=== PATIENT | male | born 1945 | race Caucasian/White ===

== ENCOUNTER 2016-11-04 12:15 | Inpatient (IN) | payer MEDICARE ==
[~2016-11-04] VITALS: Ht 172.7 cm; Wt 87.2 kg
[~2016-11-04 12:15] MED LIST: ALBU2.5V11; ALBU8.5H3 PO; ALPR0.25 PO; ALPR0.257 PO; ALPR1TAB10 PO; AMLO10TA2 PO; AMLO5TAB4 PO; AZIT500T77 PO; BUSP10TA PO; CARB1TAB2 PO; CARB1TAB47 PO; CEFD300C37 PO; DEXTROMETHORPHAN-GUA PO; DIPH25CA61; DOXY100T PO; ESOM20CA PO; ESOMEPRAZOLE PO; FAMO20TA7 PO; FLUC200T; FLUT1BLS INH; FLUT1DIS3 INH; FURO-92 PO; FURO-93; FURO40TA6 PO; HYDR-3144 PO; HYDR118L15; HYDR12.58; IPRA3AMP NPPB; LEVO500T8 PO; LEVO750T26 PO; LORA-446 PO; METH32TA PO; METH750T2 PO; METO10TA2 PO; METO50TA4 PO; METO50TA82 PO; METO5TAB57 PO; NITR0.4T SL; OXYC5TAB2 PO; OXYC5TAB3 PO; PANT40TA3 PO; POTA10CA PO; POTA10TA11 PO; POTA20PA8 PO; PRED-402 PO; PRED10TA PO; PRED20TA PO; PRED50TA; PRED5TAB PO; ROPI1TAB PO; ROPI2TAB6 PO; SIME80TA16 PO; TAMS-11 PO; TEMA30CA PO; TIOT18CA INH; TRAZ100T15 PO; WARF5TAB7 PO; [UNRECOGNIZED DRUG - CODE]; kcl
[2016-11-04 13:06] LABS: HEMOGLOBIN 14.9 g/dL (13.7-18.0); WHITE BLOOD COUNT 6.7 x10^3/uL (3.4-10)
[2016-11-04 13:19] LABS: ASPARTATE AMINO TRANSFERASE 17 U/L (15-37); BLOOD UREA NITROGEN 19 mg/dL (7-18)
[2016-11-04] MEDS ORDERED: PHYTONADIONE 10 MG/ML, 1ML IM ONE (14:30)
[2016-11-04] MEDS ORDERED: PRED10TA14 PO (14:51)
[2016-11-04] MEDS ORDERED: PRAV10TA2 PO (14:55)
[2016-11-04] MEDS ORDERED: hydrALAzine 20 MG/ML, 1ML IVPush PRN (15:30)
[2016-11-04] MEDS ORDERED: ONDANSETRON 2MG/ML, 2ML IVPush PRN (15:30)
[2016-11-04] MEDS ORDERED: TEMAZEPAM 15 MG CAPSULE PO PRN (15:30)
[2016-11-04] MEDS ORDERED: ACETAMINOPHEN 325 MG TABLET PO PRN (15:30)
[2016-11-04] MEDS ORDERED: ALBUTEROL/IPRATROPIUM 2.5MG/0.5MG, 3 ML ONE (16:00)
[2016-11-04] MEDS: ALBUTEROL SULFATE 2.5 MG/3 ML NPPB SCH (16:05)
[2016-11-04] MEDS ORDERED: PHYTONADIONE 10 MG/ML, 1ML ONE (16:07)
[2016-11-04] MEDS ORDERED: methylPREDNISolone SOD SUCC 125 MG/2 ML ONE (16:07)
[2016-11-04] MEDS: methylPREDNISolone SOD SUCC 125 MG/2 ML IVPush SCH ×2 (16:17→21:20)
[2016-11-04] MEDS ORDERED: ALBUTEROL SULFATE 2.5 MG/3 ML NPPB PRN (16:30)
[2016-11-04] MEDS: morphine SULFATE 10 MG/ML, 1ML IVPush PRN (17:54)
[2016-11-04 18:22] VITALS: BP 135/60
[2016-11-04 19:28] VITALS: BP 146/79
[2016-11-04] MEDS ORDERED: PRAVASTATIN SODIUM 10 MG PO SCH (21:00)
[2016-11-04] MEDS ORDERED: DOXYCYCLINE 100MG TABLET PO ONE (21:00)
[2016-11-04] MEDS: HYDROcodone/APAP 5/325 TABLET PO PRN (21:20)
[2016-11-04] MEDS: PRAVASTATIN 20 MG TABLET PO SCH (21:53)
[2016-11-04] MEDS: DIPHENHYDRAMINE 25 MG CAPSULE PO PRN (23:43)
[2016-11-05] MEDS: morphine SULFATE 10 MG/ML, 1ML IVPush PRN ×4 (01:06→22:49)
[2016-11-05 01:18] VITALS: BP 162/88
[2016-11-05] MEDS: HYDROcodone/APAP 5/325 TABLET PO PRN ×2 (04:01→08:04)
[2016-11-05] MEDS: methylPREDNISolone SOD SUCC 125 MG/2 ML IVPush SCH ×4 (04:02→19:54)
[2016-11-05] MEDS: ALBUTEROL SULFATE 2.5 MG/3 ML NPPB SCH ×4 (07:25→19:50)
[2016-11-05 08:00] VITALS: BP 159/81
[2016-11-05] MEDS: POTASSIUM CHLORIDE 20 MEQ PACKET PO SCH (08:04)
[2016-11-05] MEDS: FLUTICASONE/VILANTEROL 200-25MCG/INH INH SCH (08:04)
[2016-11-05] MEDS: FUROSEMIDE 40 MG TABLET PO SCH (08:05)
[2016-11-05] MEDS: AZITHROMYCIN 500 MG TABLET PO SCH (08:05)
[2016-11-05] MEDS ORDERED: OXYcodone IR 5MG TABLET PO PRN (11:00)
[2016-11-05 13:55] VITALS: BP 157/82
[2016-11-05 19:12] VITALS: BP 156/89
[2016-11-05] MEDS: PRAVASTATIN 20 MG TABLET PO SCH (19:55)
[2016-11-05] MEDS ORDERED: MORPHINE SULFATE 4 MG/ML, 1ML ONE (22:44)
[2016-11-05] MEDS: DIPHENHYDRAMINE 25 MG CAPSULE PO PRN (23:43)
[2016-11-06 01:58] VITALS: BP 148/82
[2016-11-06] MEDS: methylPREDNISolone SOD SUCC 125 MG/2 ML IVPush SCH ×2 (03:55→09:14)
[2016-11-06] MEDS ORDERED: MORPHINE SULFATE 4 MG/ML, 1ML ONE ×2 (03:58→07:03)
[2016-11-06] MEDS: morphine SULFATE 10 MG/ML, 1ML IVPush PRN ×2 (04:00→07:06)
[2016-11-06 07:13] VITALS: BP 155/72
[2016-11-06] MEDS: ALBUTEROL SULFATE 2.5 MG/3 ML NPPB SCH ×2 (07:19→10:42)
[2016-11-06] MEDS: AZITHROMYCIN 500 MG TABLET PO SCH (07:33)
[2016-11-06] MEDS: POTASSIUM CHLORIDE 20 MEQ PACKET PO SCH (07:33)
[2016-11-06] MEDS: FUROSEMIDE 40 MG TABLET PO SCH (07:33)
[2016-11-06] MEDS: FLUTICASONE/VILANTEROL 200-25MCG/INH INH SCH (07:33)
[2016-11-06] MEDS ORDERED: TRAM50TA2 PO (11:01)
[2016-11-06] MEDS ORDERED: RIVA20TA PO (11:01)
[2016-11-06] MEDS ORDERED: PRED10TA PO (11:01)
[2016-11-06] MEDS ORDERED: AZIT500T77 PO (11:01)
[2016-11-06] MEDS ORDERED: METO25TA91 PO (11:13)
[2016-11-06 13:23] VITALS: BP 148/82
== END 2016-11-06 14:45 | disposition home or self-care (01) | DRG 191 ==
LOC: ED 14:36 → SUATTDRO 14:51 → EDIP 15:13 → 3NW 16:25
PROVIDERS: ADMIT Internal Medicine; ATTEND Internal Medicine
DX: J44.1 Chronic obstructive pulmonary disease with (acute) exacerbation (principal); I13.0 Hypertensive heart and chronic kidney disease with heart failure and stage 1 through stage 4 chronic kidney disease, or unspecified chronic kidney disease; D68.9 Coagulation defect, unspecified; E11.22 Type 2 diabetes mellitus with diabetic chronic kidney disease; I50.32 Chronic diastolic (congestive) heart failure; Z99.81 Dependence on supplemental oxygen; I48.0 Paroxysmal atrial fibrillation; Z88.0 Allergy status to penicillin; Z79.01 Long term (current) use of anticoagulants; Z88.8 Allergy status to other drugs, medicaments and biological substances; E78.5 Hyperlipidemia, unspecified; N18.9 Chronic kidney disease, unspecified; Z82.49 Family history of ischemic heart disease and other diseases of the circulatory system; Z86.73 Personal history of transient ischemic attack (TIA), and cerebral infarction without residual deficits; Z87.891 Personal history of nicotine dependence; Z90.49 Acquired absence of other specified parts of digestive tract
CPT/HCPCS: 36415; 80053; 80061; 83036; 85025; 85610; 85730; 93005; 94640; 96372; J3430; J7613; J2270; J2930; Q0163

== ENCOUNTER 2016-12-02 04:09 | Inpatient (IN) | payer MEDICARE ==
[~2016-12-02] VITALS: Ht 172.7 cm; Wt 81.6 kg
[~2016-12-02 04:09] MED LIST changes: -ALBU8.5H3 PO; +ALBU8.5H8 PO; +AZIT500T5 PO; -AZIT500T77 PO; -HYDR-3144 PO; +HYDR-3245 PO; +METO25TA91 PO; +POTA20PA25 PO; -POTA20PA8 PO; +PRAV10TA2 PO; +PRED10TA14 PO; +RIVA20TA PO; +TRAM50TA2 PO
[2016-12-02] MEDS ORDERED: ONDANSETRON 2MG/ML, 2ML IVPush ONE (05:00)
[2016-12-02] MEDS ORDERED: SODIUM CHLORIDE FLUSH 10ML SYR IVF ONE (05:00)
[2016-12-02] MEDS ORDERED: SODIUM CHLORIDE 0.9% 1,000ML IVBOLUS ONE (05:00)
[2016-12-02] MEDS ORDERED: MORPHINE SULFATE 4 MG/ML, 1ML IVPush PRN (05:00)
[2016-12-02] MEDS ORDERED: ALBUTEROL/IPRATROPIUM 2.5MG/0.5MG, 3 ML ONE ×3 (05:28→11:06)
[2016-12-02] MEDS: ALBUTEROL/IPRATROPIUM 2.5MG/0.5MG, 3 ML NPPB SCH ×5 (05:33→23:40)
[2016-12-02 05:51] LABS: HEMATOCRIT 42.7 % (39.2-51.8); HEMOGLOBIN 14.4 g/dL (13.7-18.0)
[2016-12-02 05:53] LABS: BLOOD UREA NITROGEN 23 mg/dL (7-18)
[2016-12-02] MEDS ORDERED: HYDROcodone/APAP 5/325 TABLET ONE (05:58)
[2016-12-02] MEDS ORDERED: HYDROcodone/APAP 5/325 TABLET PO ONE (06:00)
[2016-12-02 06:28] LABS: IS PT STATUS REG ER OR PRE ER? YES
[2016-12-02] MEDS ORDERED: MAGNESIUM SULFATE PMX 2GM/50ML 50 ML IV ONE (07:30)
[2016-12-02] MEDS ORDERED: NITROGLYCERIN 0.4 MG BOTTLE (25 TABS) SL PRN (09:00)
[2016-12-02] MEDS ORDERED: ALBUTEROL SULFATE 2.5 MG/3 ML NPPB PRN (09:00)
[2016-12-02] MEDS: FLUTICASONE/VILANTEROL 200-25MCG/INH INH SCH (09:00)
[2016-12-02] MEDS ORDERED: ACETAMINOPHEN 325 MG TABLET PO PRN (09:00)
[2016-12-02] MEDS ORDERED: DOCUSATE 100 MG CAPSULE PO PRN (09:00)
[2016-12-02] MEDS ORDERED: hydrALAzine 20 MG/ML, 1ML IVPush PRN (09:00)
[2016-12-02] MEDS ORDERED: HYDROcodone/APAP 5/325 TABLET PO PRN (09:00)
[2016-12-02] MEDS ORDERED: GUAIFENESIN/DM 200-20MG, 10ML UDC PO PRN (09:00)
[2016-12-02] MEDS ORDERED: ONDANSETRON 2MG/ML, 2ML IVPush PRN (09:00)
[2016-12-02] MEDS: POTASSIUM CHLORIDE 20 MEQ PACKET PO SCH (09:00)
[2016-12-02] MEDS ORDERED: OXYcodone IR 5MG TABLET ONE (09:30)
[2016-12-02] MEDS: OXYcodone IR 5MG TABLET PO PRN ×2 (09:46→20:01)
[2016-12-02] MEDS ORDERED: ALBUTEROL/IPRATROPIUM 2.5MG/0.5MG, 3 ML NPPB SCH (11:00)
[2016-12-02 12:10] VITALS: BP 165/91
[2016-12-02] MEDS: PANTOPROZOLE 40MG TABLET PO SCH (12:59)
[2016-12-02] MEDS: FUROSEMIDE 40 MG TABLET PO SCH (12:59)
[2016-12-02] MEDS: RIVAROXABAN 20 MG TABLET PO SCH (12:59)
[2016-12-02] MEDS: methylPREDNISolone SOD SUCC 40 MG/ML IV SCH ×2 (13:00→23:18)
[2016-12-02 18:27] VITALS: BP 165/91
[2016-12-02 18:36] VITALS: BP 157/89
[2016-12-02] MEDS: DIAZEPAM 5 MG TABLET PO PRN (21:50)
[2016-12-03 00:23] VITALS: BP 138/75
[2016-12-03] MEDS: methylPREDNISolone SOD SUCC 40 MG/ML IV SCH (05:03)
[2016-12-03] MEDS: OXYcodone IR 5MG TABLET PO PRN ×4 (05:03→20:06)
[2016-12-03 05:43] LABS: HEMATOCRIT 43.3 % (39.2-51.8); HEMOGLOBIN 14.4 g/dL (13.7-18.0); WHITE BLOOD COUNT 8.2 x10^3/uL (3.4-10)
[2016-12-03 06:00] LABS: BLOOD UREA NITROGEN 18 mg/dL (7-18)
[2016-12-03 06:50] VITALS: BP 143/71
[2016-12-03] MEDS: ALBUTEROL/IPRATROPIUM 2.5MG/0.5MG, 3 ML NPPB SCH ×5 (06:54→23:11)
[2016-12-03] MEDS: FUROSEMIDE 40 MG TABLET PO SCH (09:07)
[2016-12-03] MEDS: POTASSIUM CHLORIDE 20 MEQ PACKET PO SCH (09:07)
[2016-12-03] MEDS: PANTOPROZOLE 40MG TABLET PO SCH (09:07)
[2016-12-03] MEDS: RIVAROXABAN 20 MG TABLET PO SCH (09:07)
[2016-12-03] MEDS: FLUTICASONE/VILANTEROL 200-25MCG/INH INH SCH (09:08)
[2016-12-03 13:53] VITALS: BP 157/79
[2016-12-03 19:01] VITALS: BP 135/79
[2016-12-03] MEDS: DIAZEPAM 5 MG TABLET PO PRN (21:12)
[2016-12-04] MEDS: ALBUTEROL/IPRATROPIUM 2.5MG/0.5MG, 3 ML NPPB SCH ×2 (03:00→07:00)
[2016-12-04 05:07] VITALS: BP 151/65
[2016-12-04] MEDS: OXYcodone IR 5MG TABLET PO PRN (05:12)
[2016-12-04] MEDS: FLUTICASONE/VILANTEROL 200-25MCG/INH INH SCH (07:41)
[2016-12-04 07:42] VITALS: BP 146/71
[2016-12-04] MEDS: RIVAROXABAN 20 MG TABLET PO SCH (07:42)
[2016-12-04] MEDS: PANTOPROZOLE 40MG TABLET PO SCH (07:42)
[2016-12-04] MEDS: FUROSEMIDE 40 MG TABLET PO SCH (07:42)
[2016-12-04] MEDS: POTASSIUM CHLORIDE 20 MEQ PACKET PO SCH (07:42)
[2016-12-04] MEDS ORDERED: CALC1TAB68 PO (09:00)
[2016-12-04] MEDS ORDERED: ALBU2.5V NPPB (09:00)
[2016-12-04] MEDS ORDERED: OXYC5TAB3 PO (09:00)
[2016-12-04] MEDS ORDERED: PRED5TAB PO (09:00)
== END 2016-12-04 11:30 | disposition home or self-care (01) | DRG 291 ==
LOC: ED 05:18 → EDIP 07:21 → 3NE 12:07
PROVIDERS: ADMIT Internal Medicine; ATTEND Internal Medicine
DX: I11.0 Hypertensive heart disease with heart failure (principal); J96.21 Acute and chronic respiratory failure with hypoxia; E11.43 Type 2 diabetes mellitus with diabetic autonomic (poly)neuropathy; K31.84 Gastroparesis; F03.90 Unspecified dementia, unspecified severity, without behavioral disturbance, psychotic disturbance, mood disturbance, and anxiety; I48.92 Unspecified atrial flutter; G20 Parkinson's disease; J44.1 Chronic obstructive pulmonary disease with (acute) exacerbation; I50.32 Chronic diastolic (congestive) heart failure; E78.5 Hyperlipidemia, unspecified; F17.210 Nicotine dependence, cigarettes, uncomplicated; F41.9 Anxiety disorder, unspecified; I48.0 Paroxysmal atrial fibrillation; M54.5 Low back pain; I48.2 Chronic atrial fibrillation; Z79.52 Long term (current) use of systemic steroids; Z79.01 Long term (current) use of anticoagulants; Z82.49 Family history of ischemic heart disease and other diseases of the circulatory system; Z86.14 Personal history of Methicillin resistant Staphylococcus aureus infection; Z86.73 Personal history of transient ischemic attack (TIA), and cerebral infarction without residual deficits; Z99.81 Dependence on supplemental oxygen; Z87.01 Personal history of pneumonia (recurrent); Z88.5 Allergy status to narcotic agent; Z88.0 Allergy status to penicillin; Z88.8 Allergy status to other drugs, medicaments and biological substances; Z90.49 Acquired absence of other specified parts of digestive tract
CPT/HCPCS: 36415; 71010; 80048; 82040; 83735; 83880; 84484; 85025; 93005; 94640; 96365; 96366; J7620; J2920; J3475; J7512

== ENCOUNTER 2017-03-16 11:49 | Inpatient (IN) | payer MEDICARE ==
[~2017-03-16] VITALS: Ht 170.2 cm; Wt 85.0 kg
[~2017-03-16 11:49] MED LIST changes: +ALBU2.5V NPPB; +CALC1TAB68 PO
[2017-03-16] MEDS ORDERED: ALBUTEROL/IPRATROPIUM 2.5MG/0.5MG, 3 ML ONE ×2 (12:08→15:03)
[2017-03-16] MEDS ORDERED: ALBUTEROL SULFATE 2.5MG/0.5ML ONE (12:08)
[2017-03-16] MEDS ORDERED: SODIUM CHLORIDE FLUSH 10ML SYR IVF ONE (12:30)
[2017-03-16 12:36] LABS: HEMATOCRIT 42.8 % (39.2-51.8); HEMOGLOBIN 14.4 g/dL (13.7-18.0); WHITE BLOOD COUNT 5.2 x10^3/uL (3.4-10)
[2017-03-16] MEDS ORDERED: LORazepam 2 MG/ML, 1ML ONE (12:43)
[2017-03-16] MEDS ORDERED: methylPREDNISolone SOD SUCC 125 MG/2 ML ONE (12:43)
[2017-03-16 12:49] LABS: ASPARTATE AMINO TRANSFERASE 14 U/L (15-37); BLOOD UREA NITROGEN 13 mg/dL (7-18)
[2017-03-16 12:53] LABS: IS PT STATUS REG ER OR PRE ER? YES
[2017-03-16] MEDS ORDERED: NITR0.4T28 SL (12:56)
[2017-03-16] MEDS ORDERED: GABA300C10 PO (12:56)
[2017-03-16] MEDS ORDERED: PRAV40TA2 PO (12:56)
[2017-03-16] MEDS ORDERED: MIRT30TA4 PO (12:56)
[2017-03-16] MEDS ORDERED: AMLO5TAB2 PO (12:56)
[2017-03-16] MEDS ORDERED: ROPI4TAB4 PO (12:56)
[2017-03-16] MEDS ORDERED: ESOM20CA PO (12:56)
[2017-03-16] MEDS ORDERED: TAMS0.4C2 PO (12:56)
[2017-03-16] MEDS ORDERED: CEFTRIAXONE PMX 1GM/50ML 50 ML IVPB ONE (13:00)
[2017-03-16] MEDS ORDERED: methylPREDNISolone SOD SUCC 125 MG/2 ML IVPush ONE (13:00)
[2017-03-16] MEDS ORDERED: LORazepam 2 MG/ML, 1ML IVPush ONE (13:00)
[2017-03-16] MEDS ORDERED: AZITHROMYCIN 500 MG in SODIUM CHLORIDE 0.9% 250 ML IV ONE (13:00)
[2017-03-16] MEDS ORDERED: CEFTRIAXONE PMX 1GM/50ML 50 ML ONE (13:31)
[2017-03-16] MEDS ORDERED: NITROGLYCERIN 0.4 MG BOTTLE (25 TABS) SL PRN (14:00)
[2017-03-16] MEDS ORDERED: ACETAMINOPHEN 325 MG TABLET PO PRN (14:00)
[2017-03-16] MEDS ORDERED: ENOXAPARIN 40 MG/0.4 ML SQ SCH (14:00)
[2017-03-16] MEDS ORDERED: GUAIFENESIN/DM 200-20MG, 10ML UDC PO PRN (14:00)
[2017-03-16] MEDS ORDERED: ENALAPRILAT 1.25 MG/ML, 2ML IVPush PRN (14:00)
[2017-03-16] MEDS: methylPREDNISolone SOD SUCC 125 MG/2 ML IVPush SCH ×2 (14:00→20:33)
[2017-03-16] MEDS ORDERED: ONDANSETRON 2MG/ML, 2ML IVPush PRN (14:00)
[2017-03-16] MEDS: AZITHROMYCIN 500 MG in SODIUM CHLORIDE 0.9% 250 ML IV SCH (14:00)
[2017-03-16] MEDS ORDERED: ONDANSETRON ODT 4 MG PO PRN (14:00)
[2017-03-16] MEDS: CEFTRIAXONE PMX 2GM/50ML 50 ML IV SCH (14:00)
[2017-03-16] MEDS ORDERED: MORPHINE SULFATE 4 MG/ML, 1ML ONE (14:15)
[2017-03-16] MEDS: morphine SULFATE 10 MG/ML, 1ML IVPush PRN ×2 (14:29→20:34)
[2017-03-16] MEDS: ALBUTEROL/IPRATROPIUM 2.5MG/0.5MG, 3 ML NPPB SCH ×3 (15:00→23:00)
[2017-03-16] MEDS: SODIUM CHLORIDE 0.9% 1,000 ML IV SCH (17:10)
[2017-03-16 17:50] VITALS: BP 149/84
[2017-03-16] MEDS: OXYcodone/APAP 5/325MG TABLET PO PRN (18:19)
[2017-03-16] MEDS: GABAPENTIN 300 MG CAPSULE PO SCH ×2 (18:20→20:33)
[2017-03-16] MEDS ORDERED: IPRATROPIUM 0.5 MG/2.5 ML INHA NPPB SCH (18:30)
[2017-03-16 18:51] VITALS: BP 162/84
[2017-03-16] MEDS: CALCIUM/VITAMIN D3 250-125 TABLET PO SCH (20:33)
[2017-03-16] MEDS: MIRTAZAPINE 30 MG TAB.RAPDIS PO SCH (20:34)
[2017-03-16] MEDS: PRAVASTATIN 40 MG TABLET PO SCH (20:34)
[2017-03-16] MEDS: ROPINIROLE 1MG TABLET PO SCH (20:34)
[2017-03-17 02:10] VITALS: BP 145/79
[2017-03-17] MEDS: ALBUTEROL/IPRATROPIUM 2.5MG/0.5MG, 3 ML NPPB SCH ×6 (02:45→23:45)
[2017-03-17] MEDS: morphine SULFATE 10 MG/ML, 1ML IVPush PRN ×5 (02:56→21:20)
[2017-03-17] MEDS: methylPREDNISolone SOD SUCC 125 MG/2 ML IVPush SCH ×4 (02:57→21:18)
[2017-03-17] MEDS: SODIUM CHLORIDE 0.9% 1,000 ML IV SCH ×2 (02:57→13:20)
[2017-03-17 04:52] LABS: HEMATOCRIT 39.3 % (39.2-51.8); HEMOGLOBIN 13.1 g/dL (13.7-18.0); WHITE BLOOD COUNT 5.5 x10^3/uL (3.4-10)
[2017-03-17] MEDS: OXYcodone/APAP 5/325MG TABLET PO PRN (06:08)
[2017-03-17] MEDS: OMEPRAZOLE 20 MG CAPSULE.DR PO SCH (07:30)
[2017-03-17] MEDS: POTASSIUM CHLORIDE 20 MEQ TAB.ER.PRT PO SCH (08:31)
[2017-03-17] MEDS: CALCIUM/VITAMIN D3 250-125 TABLET PO SCH ×2 (08:32→21:00)
[2017-03-17] MEDS: ROPINIROLE 1MG TABLET PO SCH ×2 (08:32→21:17)
[2017-03-17] MEDS: TAMSULOSIN 0.4 MG CAP.ER.24H PO SCH (08:32)
[2017-03-17] MEDS: RIVAROXABAN 20 MG TABLET PO SCH (08:32)
[2017-03-17] MEDS: GABAPENTIN 300 MG CAPSULE PO SCH ×3 (08:32→21:17)
[2017-03-17] MEDS: AMLODIPINE 5 MG TABLET PO SCH (08:33)
[2017-03-17] MEDS: FUROSEMIDE 20 MG TABLET PO SCH (08:33)
[2017-03-17 08:44] VITALS: BP 142/88
[2017-03-17] MEDS ORDERED: METOCLOPRAMIDE 5 MG/ML, 2ML IVPush PRN (11:00)
[2017-03-17 13:15] VITALS: BP 149/82
[2017-03-17] MEDS: AZITHROMYCIN 500 MG in SODIUM CHLORIDE 0.9% 250 ML IV SCH (13:27)
[2017-03-17] MEDS ORDERED: MORPHINE SULFATE 4 MG/ML, 1ML IVPush ONE (13:30)
[2017-03-17] MEDS: CEFTRIAXONE PMX 2GM/50ML 50 ML IV SCH (16:00)
[2017-03-17] MEDS: INSULIN ASPART 100 UNITS/ML, PEN SQ-INSULIN SCH ×2 (16:00→21:53)
[2017-03-17 20:50] VITALS: BP 141/77
[2017-03-17] MEDS: MIRTAZAPINE 30 MG TAB.RAPDIS PO SCH (21:17)
[2017-03-17] MEDS: PRAVASTATIN 40 MG TABLET PO SCH (21:17)
[2017-03-18] MEDS ORDERED: OMNIPAQUE 350 MG/ML, 100ML BOTTLE ONE (00:15)
[2017-03-18] MEDS ORDERED: MORPHINE SULFATE 4 MG/ML, 1ML ONE (01:40)
[2017-03-18] MEDS: ALBUTEROL/IPRATROPIUM 2.5MG/0.5MG, 3 ML NPPB SCH ×3 (02:49→09:35)
[2017-03-18 02:59] VITALS: BP 147/76
[2017-03-18] MEDS: SODIUM CHLORIDE 0.9% 1,000 ML IV SCH (03:28)
[2017-03-18] MEDS: morphine SULFATE 10 MG/ML, 1ML IVPush PRN (03:30)
[2017-03-18] MEDS: methylPREDNISolone SOD SUCC 125 MG/2 ML IVPush SCH ×2 (03:52→10:16)
[2017-03-18 05:50] LABS: HEMATOCRIT 36.5 % (39.2-51.8); HEMOGLOBIN 12.3 g/dL (13.7-18.0); WHITE BLOOD COUNT 9.3 x10^3/uL (3.4-10)
[2017-03-18 05:59] LABS: BLOOD UREA NITROGEN 10 mg/dL (7-18)
[2017-03-18 06:55] VITALS: BP 123/66
[2017-03-18] MEDS: INSULIN ASPART 100 UNITS/ML, PEN SQ-INSULIN SCH (07:00)
[2017-03-18] MEDS: AMLODIPINE 5 MG TABLET PO SCH (08:17)
[2017-03-18] MEDS: OXYcodone/APAP 5/325MG TABLET PO PRN (08:17)
[2017-03-18] MEDS: ROPINIROLE 1MG TABLET PO SCH (08:17)
[2017-03-18] MEDS: GABAPENTIN 300 MG CAPSULE PO SCH (08:17)
[2017-03-18] MEDS: CALCIUM/VITAMIN D3 250-125 TABLET PO SCH (08:18)
[2017-03-18] MEDS: RIVAROXABAN 20 MG TABLET PO SCH (08:18)
[2017-03-18] MEDS: POTASSIUM CHLORIDE 20 MEQ TAB.ER.PRT PO SCH (08:18)
[2017-03-18] MEDS: TAMSULOSIN 0.4 MG CAP.ER.24H PO SCH (08:18)
[2017-03-18] MEDS: FUROSEMIDE 20 MG TABLET PO SCH (08:18)
[2017-03-18] MEDS: OMEPRAZOLE 20 MG CAPSULE.DR PO SCH (08:19)
[2017-03-18] MEDS ORDERED: PRED20TA PO (10:17)
[2017-03-18] MEDS ORDERED: AZIT500T5 PO (10:17)
== END 2017-03-18 12:17 | disposition home or self-care (01) | DRG 193 ==
LOC: ED 12:35 → EDIP 12:57 → 4WST 17:37
PROVIDERS: ADMIT Hospitalist; ATTEND Internal Medicine
DX: J15.9 Unspecified bacterial pneumonia (principal); J96.21 Acute and chronic respiratory failure with hypoxia; E11.43 Type 2 diabetes mellitus with diabetic autonomic (poly)neuropathy; D68.69 Other thrombophilia; K31.84 Gastroparesis; G20 Parkinson's disease; I11.0 Hypertensive heart disease with heart failure; I50.32 Chronic diastolic (congestive) heart failure; J44.1 Chronic obstructive pulmonary disease with (acute) exacerbation; J44.0 Chronic obstructive pulmonary disease with (acute) lower respiratory infection; G89.29 Other chronic pain; I48.0 Paroxysmal atrial fibrillation; E78.5 Hyperlipidemia, unspecified; F02.80 Dementia in other diseases classified elsewhere, unspecified severity, without behavioral disturbance, psychotic disturbance, mood disturbance, and anxiety; Z79.01 Long term (current) use of anticoagulants; Z86.73 Personal history of transient ischemic attack (TIA), and cerebral infarction without residual deficits; Z87.891 Personal history of nicotine dependence; Z99.81 Dependence on supplemental oxygen; Z79.899 Other long term (current) drug therapy; Z88.0 Allergy status to penicillin; Z88.1 Allergy status to other antibiotic agents; Z88.8 Allergy status to other drugs, medicaments and biological substances
CPT/HCPCS: 36415; 71010; 71275; 74177; 80048; 80053; 82962; 83605; 83880; 84145; 84484; 85025; 85610; 87040; 93005; 94640; 96374; 96375; J0456; J0696; J1815; J2405; J7620; Q9967; J2060; J2270; J2930; J7030; J7050

== ENCOUNTER 2017-03-19 03:58 | Inpatient (IN) | payer MEDICARE ==
[~2017-03-19] VITALS: Ht 172.7 cm; Wt 86.1 kg
[~2017-03-19 03:58] MED LIST changes: +AMLO5TAB2 PO; +GABA300C10 PO; +MIRT30TA4 PO; +NITR0.4T28 SL; +PRAV40TA2 PO; +ROPI4TAB4 PO; +TAMS0.4C2 PO
[2017-03-19] MEDS ORDERED: SODIUM CHLORIDE FLUSH 10ML SYR IVF ONE (04:30)
[2017-03-19 05:01] LABS: BASOPHILS # (AUTO) 0.02 x10^3/uL (0-0.1); BASOPHILS % (AUTO) 0 % (0-1); EOSINOPHILS % (AUTO) 0 % (1-7); LYMPHOCYTES # (AUTO) 1.37 x10^3/uL (1-3.4); LYMPHOCYTES % (AUTO) 12 % (22-44); MD NO; MEAN CORPUSCULAR HGB CONC 33.4 g/dL (33.2-36.2); MEAN CORPUSCULAR VOLUME 92.8 fL (81-97); MEAN PLATELET VOLUME 8.3 fL (7.4-10.4); MONOCYTES # (AUTO) 1.14 x10^3/uL (0.2-0.8); MONOCYTES % (AUTO) 10 % (2-9); NEUTROPHILS # (AUTO) 8.58 x10^3/uL (1.8-6.8); NEUTROPHILS % (AUTO) 77 % (42-75); PLATELET COUNT 198 x10^3/uL (130-400); RED BLOOD COUNT 3.94 x10^6/uL (4.38-5.82); RED CELL DISTRIBUTION WIDTH 14.1 % (9.4-14.8)
[2017-03-19 05:14] LABS: ALANINE AMINOTRANSFERASE 14 U/L (12-78); ALBUMIN 3.3 g/dL (3.4-5.0); ANION GAP 6 mmol/L (5-15); CALCIUM 8.7 mg/dL (8.5-10.1); CHLORIDE 110 mmol/L (98-107)
[2017-03-19 05:18] LABS: ALKALINE PHOSPHATASE 78 U/L (45-117); BILIRUBIN,TOTAL 0.2 mg/dL (0.2-1.0); TOTAL PROTEIN 6.3 g/dL (6.4-8.2); TROPONIN I < 0.015 ng/mL (0.000-0.045)
[2017-03-19] MEDS ORDERED: ALBUTEROL/IPRATROPIUM 2.5MG/0.5MG, 3 ML ONE ×2 (05:54→14:01)
[2017-03-19] MEDS ORDERED: ALBUTEROL/IPRATROPIUM 2.5MG/0.5MG, 3 ML NPPB PRN (06:00)
[2017-03-19] MEDS ORDERED: SODIUM CHLORIDE FLUSH 10ML SYR IVF PRN (07:00)
[2017-03-19] MEDS: AZITHROMYCIN 500 MG TABLET PO SCH (08:48)
[2017-03-19] MEDS: methylPREDNISolone SOD SUCC 40 MG/ML IVPush SCH ×3 (08:48→21:26)
[2017-03-19] MEDS ORDERED: ONDANSETRON 2MG/ML, 2ML IVPush PRN (09:00)
[2017-03-19] MEDS ORDERED: GUAIFENESIN/DM 200-20MG, 10ML UDC PO PRN (09:00)
[2017-03-19] MEDS ORDERED: TEMAZEPAM 15 MG CAPSULE PO PRN (09:00)
[2017-03-19] MEDS ORDERED: ACETAMINOPHEN 325 MG TABLET PO PRN (09:00)
[2017-03-19] MEDS ORDERED: methylPREDNISolone SOD SUCC 40 MG/ML ONE (09:47)
[2017-03-19] MEDS ORDERED: AZITHROMYCIN 250 MG TABLET ONE (09:47)
[2017-03-19] MEDS: ALBUTEROL/IPRATROPIUM 2.5MG/0.5MG, 3 ML NPPB SCH ×2 (15:00→19:47)
[2017-03-19 19:48] VITALS: BP 127/80
[2017-03-20 03:12] VITALS: BP 130/73
[2017-03-20] MEDS: methylPREDNISolone SOD SUCC 40 MG/ML IVPush SCH ×3 (03:17→15:20)
[2017-03-20 06:28] VITALS: BP 135/77
[2017-03-20] MEDS: ALBUTEROL/IPRATROPIUM 2.5MG/0.5MG, 3 ML NPPB SCH ×2 (07:15→11:20)
[2017-03-20] MEDS: AZITHROMYCIN 500 MG TABLET PO SCH (08:32)
[2017-03-20] MEDS ORDERED: POTASSIUM CHLORIDE 20 MEQ PACKET PO SCH (09:00)
[2017-03-20] MEDS ORDERED: AMLODIPINE 5 MG TABLET PO SCH (09:00)
[2017-03-20] MEDS ORDERED: ROPINIROLE 1MG TABLET PO SCH (09:00)
[2017-03-20] MEDS ORDERED: GABAPENTIN 300 MG CAPSULE PO SCH (09:00)
[2017-03-20] MEDS ORDERED: RIVAROXABAN 20 MG TABLET PO SCH (09:00)
[2017-03-20] MEDS ORDERED: TAMSULOSIN 0.4 MG CAP.ER.24H PO SCH (09:00)
[2017-03-20] MEDS ORDERED: OMEPRAZOLE 20 MG CAPSULE.DR PO SCH (09:00)
[2017-03-20] MEDS ORDERED: PRED5TAB PO (11:50)
[2017-03-20] MEDS ORDERED: TEMA15CA6 PO (11:50)
[2017-03-20 12:38] VITALS: BP 125/73
[2017-03-20] MEDS ORDERED: MIRTAZAPINE 30 MG TAB.RAPDIS PO SCH (21:00)
== END 2017-03-20 15:50 | disposition home or self-care (01) | DRG 189 ==
LOC: ED 06:32 → EDIP 06:37 → ED 06:43 → 3NE 15:22
PROVIDERS: ADMIT Internal Medicine; ATTEND Family Medicine
DX: J96.20 Acute and chronic respiratory failure, unspecified whether with hypoxia or hypercapnia (principal); D68.59 Other primary thrombophilia; G20 Parkinson's disease; E44.1 Mild protein-calorie malnutrition; I50.32 Chronic diastolic (congestive) heart failure; I11.0 Hypertensive heart disease with heart failure; J44.1 Chronic obstructive pulmonary disease with (acute) exacerbation; I48.0 Paroxysmal atrial fibrillation; E11.9 Type 2 diabetes mellitus without complications; F03.90 Unspecified dementia, unspecified severity, without behavioral disturbance, psychotic disturbance, mood disturbance, and anxiety; G47.00 Insomnia, unspecified; Z79.01 Long term (current) use of anticoagulants; Z86.14 Personal history of Methicillin resistant Staphylococcus aureus infection; Z87.01 Personal history of pneumonia (recurrent); Z99.81 Dependence on supplemental oxygen; Z88.0 Allergy status to penicillin; Z88.1 Allergy status to other antibiotic agents; Z88.8 Allergy status to other drugs, medicaments and biological substances; Z68.28 Body mass index [BMI] 28.0-28.9, adult
CPT/HCPCS: 36415; 71010; 80053; 83880; 84484; 85025; 93005; 94640; J7620; J2920; J7512